=== PATIENT | female | born 1985 ===

== ENCOUNTER 2024-11-12 10:38 | Outpatient (CLI) | payer OTHER | END 2024-11-12 10:39 | disposition home or self-care (01) | LOC: PRENATAL 10:38 | PROVIDERS: ATTEND Obstetrics & Gynecology Maternal & Fetal Medicine | DX: O44.00 Complete placenta previa NOS or without hemorrhage, unspecified trimester (principal); O09.519 Supervision of elderly primigravida, unspecified trimester; Z3A.20 20 weeks gestation of pregnancy ==